=== PATIENT | male | born 1965 | race Caucasian/White ===

== ENCOUNTER 2018-03-17 16:19 | Emergency (ER) | payer OTHER ==
[~2018-03-17] VITALS: Ht 172.7 cm; Wt 68.0 kg
[2018-03-17] MEDS ORDERED: LISI5 (17:18)
[2018-03-17] MEDS ORDERED: AMOCLA500 PO (17:18)
[2018-03-17] MEDS ORDERED: METF500C (17:19)
[2018-03-17] MEDS ORDERED: INSULANPEN (17:19)
== END 2018-03-17 18:21 | disposition home or self-care (01) ==
LOC: ER 16:19
DX: T81.4XXA Infection following a procedure, initial encounter (principal); F17.210 Nicotine dependence, cigarettes, uncomplicated; Z79.899 Other long term (current) drug therapy; Z79.4 Long term (current) use of insulin
CPT/HCPCS: 99282

== ENCOUNTER 2018-03-17 19:50 | Emergency (ER) | payer OTHER ==
[~2018-03-17] VITALS: Ht 172.7 cm; Wt 70.3 kg
[~2018-03-17 19:50] MED LIST: AMOCLA500 PO; INSULANPEN; LISI5; METF500C
== END 2018-03-17 21:38 | disposition home or self-care (01) ==
LOC: ER 19:50
DX: R41.0 Disorientation, unspecified (principal); I10 Essential (primary) hypertension; E11.9 Type 2 diabetes mellitus without complications; F17.210 Nicotine dependence, cigarettes, uncomplicated; Z79.899 Other long term (current) drug therapy; Z79.4 Long term (current) use of insulin
CPT/HCPCS: 99281